=== PATIENT | female | born 1995 | race Caucasian/White ===

== ENCOUNTER 2016-06-08 16:00 | Emergency (ER) | payer MEDICAID ==
[2016-06-08 16:16] VITALS: BP 111/51; PULSE 88; RESP 16; TEMP 98.2; O2SAT 97
[2016-06-08] MEDS ORDERED: OXYCODONE/APAP 5/325 TAB PO ONE (16:28)
--- NOTE | 2016-06-08 16:37 | EDPHY ---
H & P Time Seen by Provider: 06/08/16 16:17 HPI/ROS: This is a 21-year-old female presenting to the emergency department complaining of wisdom teeth tooth pain. Patient states she has yet to see a dentist, she has left upper wisdom tooth and right lower wisdom tooth coming out. Denies any other complaints, able to chew without difficulty no changes in PO intake. Has is has been taking intermittently ibuprofen with some resolved. REVIEW OF SYSTEMS: Constitutional: No fever chills, no change in PO intake ENT: Dental pain: Left upper wisdom tooth, and right lower wisdom tooth Respiratory: No cough Cardiac: No chest pain Gastrointestinal: No nausea vomiting Skin: No rash Neurological: Intermittent headache from tooth pain Smoking Status: Never smoked Physical Exam: CONSTITUTIONAL: patient appeared well nourished, non-ill appearing and normally developed. No acute distress. Vital signs as documented. HEENT: NCAT. No dental caries no malocclusion. Left upper wisdom tooth and right lower wisdom tooth coming through gum line, tender on palpation. No drainage noted. NECK: FROM without pain RESP: Non-labored resp effort NEURO: AAOx3 EXTREMITIES: FROM without pain or difficulty. SKIN: Warm and dry no rash PSYCH: Normal affect, calm, no distress Constitutional: Initial Vital Signs Temperature (C) 36.8 C 06/08/16 16:10 Heart Rate 88 06/08/16 16:10 Respiratory Rate 16 06/08/16 16:10 Blood Pressure 111/51 L 06/08/16 16:10 O2 Sat (%) 97 06/08/16 16:10 O2 Delivery Mode Room Air Allergies/Adverse Reactions: No Known Allergies Allergy (Unverified 06/08/16 16:14) Home Medications: Medication Instructions Recorded oxyCODONE HCL/ACETAMINOPHEN 1 each PO Q6 #10 tablet 06/08/16 [Percocet 5-325 mg Tablet] Medical Decision Making ED Course/Re-evaluation: Discussed plan of care: Pain meds ordered, resources for dental clinics here in [facility] that take Medicaid. Discharge home--> stable, discussed discharge instructions Differential Diagnosis: Differential diagnosis considered but not limited to fractured tooth, dental abscess and stomatitis - Data Points Medications Given: Discontinued Medications Oxycodone/Acetaminophen (Percocet 5/325) 2 tab PO EDNOW ONE Stop: 06/08/16 16:29 Last Admin: 06/08/16 16:37 Dose: 2 tab Departure - Departure Disposition: Home, Routine, Self-Care Clinical Impression: Toothache Condition: Good Instructions: Toothache (ED) Additional Instructions: 1. You have been given resources for dental clinic that takes Medicaid, called him this week for follow-up 2. Ibuprofen as needed 600 mg every 6-8 hours, Tylenol 500 mg to 1000 mg every 6 hours. you can also use Orajel on the gum around the tooth 3. Gargle with warm salt water as needed Referrals: NONE *PRIMARY CARE P,. [Primary Care Provider] - As per Instructions [facility],. [Clinic] - As per Instructions Prescriptions: oxyCODONE HCL/ACETAMINOPHEN [Percocet 5-325 mg Tablet] 1 each PO Q6 #10 tablet
== END 2016-06-08 16:44 | disposition home or self-care (01) ==
DX: K08.89 Other specified disorders of teeth and supporting structures (principal)